=== PATIENT | male | born 1940 | race Caucasian/White ===

== ENCOUNTER 2021-04-13 11:16 | Outpatient (CLI) | payer MEDICARE, OTHER ==
[2021-04-14 01:13] LABS: SARS-CoV-2 PCR by NAA Not Detected (NotDetected)
== END 2021-04-13 11:17 | disposition home or self-care (01) ==
LOC: CSHLAB 11:16
PROVIDERS: ATTEND Internal Medicine Gastroenterology
DX: Z20.822 Contact with and (suspected) exposure to COVID-19 (principal)
CPT/HCPCS: U0003; U0005

== ENCOUNTER 2023-07-22 22:12 | Inpatient (IN) | payer MEDICARE ==
[2023-07-22] MEDS ORDERED: Guaifenesin DM 100-10/5 ML UDCUP PO PRN (23:52)
[2023-07-22] MEDS ORDERED: Ondansetron PF 4 MG/2 ML Vial IVP PRN (23:52)
[2023-07-22] MEDS ORDERED: Acetaminophen 325 MG TAB PO PRN (23:52)
[2023-07-22] MEDS ORDERED: Calcium Carbonate 500 MG ChewTAB PO PRN (23:52)
[2023-07-22] MEDS ORDERED: Senokot S 8.6-50 MG TAB PO PRN (23:52)
[2023-07-23] MEDS ORDERED: cefTRIAXone\\ROCEPHIN 1 GM in Sodium Chloride 0.9% 100 ML IVPB SCH (00:15)
[2023-07-23 00:17] VITALS: BMI 30.2
[2023-07-23] MEDS ORDERED: Lactated Ringer's 1,000 ML IV SCH (01:00)
[2023-07-23] MEDS ORDERED: Lactated Ringer's 250 ML IV SCH (01:00)
[2023-07-23] MEDS ORDERED: Vancomycin 1.5 GRAM/300 ML BAG 1.5 GM in Premix 1 BAG IVPB SCH (01:00)
[2023-07-23] MEDS ORDERED: Amlodipine 5 MG TAB PO SCH (04:15)
[2023-07-23 06:20] LABS: #Monocytes 1.1 10x3/uL (0.0-1.1); #Neutrophils 11.3 10x3/uL (1.5-8.4); %Basophils 0.3 % (0.0-2.0); %Eosinophils 0.1 % (0.0-6.0); %Lymphocytes 5.6 % (18.0-47.0); %Monocytes 8.4 % (0.0-10.0); %Neutrophils 85.1 % (40.0-75.0); Hematocrit 44.5 % (38.8-50.0); Hemoglobin 15.8 g/dL (13.5-17.5); Mean Corpuscular HGB CONC 35.5 g/dL (32.0-36.0); Mean Corpuscular Hemoglobin 34.4 pg (27.0-33.0); Mean Corpuscular Volume 96.9 fl (81.2-95.1); Mean Platelet Volume 9.7 fl (7.4-10.4); Platelet Count 128 10x3/uL (150-450); RBC Distribution Width 13.3 % (11.5-14.5); Red Blood Cell (RBC) Count 4.59 10x6/uL (4.32-5.72); White Blood Cell (WBC) Count 13.3 10x3/uL (3.5-10.5)
[2023-07-23 06:38] LABS: Lactic Acid 2.4 mmol/L (0.5-2.2)
[2023-07-23 06:45] LABS: Anion Gap 19 mmol/L (10-20); BUN (Urea Nitrogen) 17 mg/dL (8.4-25.7); CK (CPK) 235 U/L (30-200); Calc. Creatinine Clearance 68 mL/min (70-130); Calcium 9.2 mg/dL (7.8-10.44); Carbon Dioxide 24 mmol/L (23-31); Chloride 95 mmol/L (98-107); Estimated GFR 66; Glucose 130 mg/dL (83-110); Magnesium 1.2 mg/dL (1.6-2.6); Sodium 134 mmol/L (136-145)
[2023-07-23] MEDS ORDERED: Famotidine 20 MG TAB PO SCH (09:00)
[2023-07-23] MEDS: Vit A,C & E/Lutein/Minerals Tablet PO SCH (09:13)
[2023-07-23] MEDS: Cilostazol 100 MG TAB PO SCH ×2 (09:14→17:45)
[2023-07-23] MEDS: CO Q-10 CAPSULE 50 MG PO SCH (09:14)
[2023-07-23] MEDS: Clopidogrel Bisulfate 75 MG TAB PO SCH (09:14)
[2023-07-23] MEDS: Aspirin Chewable 81 MG TAB PO SCH (09:15)
[2023-07-23] MEDS ORDERED: Magnesium 2 GM/50 ML(in water) 2 GM in Premix 1 BAG IVPB SCH (12:45)
[2023-07-23] MEDS ORDERED: Polyethylene Glycol 3350 17 GM Packet PO PRN (12:58)
[2023-07-23] MEDS: Lactated Ringer's 1,000 ML IV SCH (13:29)
[2023-07-23 16:01] LABS: Lactic Acid 3.4 mmol/L (0.5-2.2)
[2023-07-23] MEDS: cefTRIAXone\\ROCEPHIN 2 GM in Sodium Chloride 0.9% 100 ML IVPB SCH (17:44)
[2023-07-23] MEDS: levETIRAcetam 500 MG TAB PO SCH (17:45)
[2023-07-23 18:55] LABS: Troponin I 0.052 ng/mL (< 0.028)
[2023-07-23] MEDS: Atorvastatin Calcium 40 MG TAB PO SCH (20:49)
[2023-07-23] MEDS ORDERED: levETIRAcetam 500 MG TAB PO SCH (21:00)
[2023-07-24] MEDS: Lactated Ringer's 1,000 ML IV SCH (02:22)
[2023-07-24 04:52] LABS: #Monocytes 1.1 10x3/uL (0.0-1.1); %Basophils 0.3 % (0.0-2.0); %Eosinophils 0.3 % (0.0-6.0); %Lymphocytes 7.8 % (18.0-47.0); %Monocytes 10.6 % (0.0-10.0); %Neutrophils 80.4 % (40.0-75.0); Hematocrit 40.4 % (38.8-50.0); Hemoglobin 14.5 g/dL (13.5-17.5); Mean Corpuscular HGB CONC 35.9 g/dL (32.0-36.0); Mean Corpuscular Hemoglobin 35.1 pg (27.0-33.0); Mean Corpuscular Volume 97.8 fl (81.2-95.1); Mean Platelet Volume 10.4 fl (7.4-10.4); Platelet Count 114 10x3/uL (150-450); RBC Distribution Width 13.4 % (11.5-14.5); Red Blood Cell (RBC) Count 4.13 10x6/uL (4.32-5.72); White Blood Cell (WBC) Count 9.9 10x3/uL (3.5-10.5)
[2023-07-24 05:04] LABS: Anion Gap 16 mmol/L (10-20); BUN (Urea Nitrogen) 23 mg/dL (8.4-25.7); Calc. Creatinine Clearance 67 mL/min (70-130); Calcium 8.9 mg/dL (7.8-10.44); Carbon Dioxide 25 mmol/L (23-31); Chloride 97 mmol/L (98-107); Estimated GFR 64; Glucose 129 mg/dL (83-110); Potassium 3.7 mmol/L (3.5-5.1); Sodium 134 mmol/L (136-145)
[2023-07-24 05:08] LABS: Troponin I 0.043 ng/mL (< 0.028)
[2023-07-24 05:19] LABS: Platelet Adequacy Comment Appears Decreased
[2023-07-24 05:20] LABS: Macrocytosis SLIGHT = 6-15 cells (100X) (0-5/hpf)
[2023-07-24] MEDS: CO Q-10 CAPSULE 50 MG PO SCH (08:56)
[2023-07-24] MEDS: Clopidogrel Bisulfate 75 MG TAB PO SCH (08:56)
[2023-07-24] MEDS: Vit A,C & E/Lutein/Minerals Tablet PO SCH (08:56)
[2023-07-24] MEDS: Aspirin Chewable 81 MG TAB PO SCH (08:56)
[2023-07-24] MEDS: Cilostazol 100 MG TAB PO SCH ×2 (08:56→16:19)
[2023-07-24] MEDS: Polyethylene Glycol 3350 17 GM Packet PO SCH (08:56)
[2023-07-24] MEDS: levETIRAcetam 500 MG TAB PO SCH (16:20)
[2023-07-24] MEDS: cefTRIAXone\\ROCEPHIN 2 GM in Sodium Chloride 0.9% 100 ML IVPB SCH (18:43)
[2023-07-24] MEDS: Atorvastatin Calcium 40 MG TAB PO SCH (22:23)
[2023-07-25 05:07] LABS: #Eosinphils 0.2 10x3/uL (0.0-0.5); #Monocytes 0.9 10x3/uL (0.0-1.1); #Neutrophils 4.6 10x3/uL (1.5-8.4); %Basophils 0.3 % (0.0-2.0); %Eosinophils 2.7 % (0.0-6.0); %Lymphocytes 15.1 % (18.0-47.0); %Monocytes 13.9 % (0.0-10.0); %Neutrophils 67.6 % (40.0-75.0); Hematocrit 36.4 % (38.8-50.0); Hemoglobin 13.6 g/dL (13.5-17.5); Mean Corpuscular HGB CONC 37.4 g/dL (32.0-36.0); Mean Corpuscular Hemoglobin 35.9 pg (27.0-33.0); Mean Platelet Volume 10.4 fl (7.4-10.4); Platelet Count 118 10x3/uL (150-450); RBC Distribution Width 13.2 % (11.5-14.5); Red Blood Cell (RBC) Count 3.79 10x6/uL (4.32-5.72); White Blood Cell (WBC) Count 6.8 10x3/uL (3.5-10.5)
[2023-07-25 05:32] LABS: Anion Gap 14 mmol/L (10-20); BUN (Urea Nitrogen) 21 mg/dL (8.4-25.7); Calc. Creatinine Clearance 76 mL/min (70-130); Calcium 8.7 mg/dL (7.8-10.44); Carbon Dioxide 23 mmol/L (23-31); Chloride 100 mmol/L (98-107); Estimated GFR 75; Glucose 117 mg/dL (83-110); Potassium 2.8 mmol/L (3.5-5.1); Sodium 134 mmol/L (136-145)
[2023-07-25 05:53] LABS: Macrocytosis SLIGHT = 6-15 cells (100X) (0-5/hpf); Platelet Adequacy Comment Appears Decreased
[2023-07-25] MEDS: Cilostazol 100 MG TAB PO SCH ×2 (07:37→17:46)
[2023-07-25] MEDS: Vit A,C & E/Lutein/Minerals Tablet PO SCH (09:24)
[2023-07-25] MEDS: Potassium Chloride 20 MEQ TAB PO SCH ×2 (09:24→11:00)
[2023-07-25] MEDS: CO Q-10 CAPSULE 50 MG PO SCH (09:24)
[2023-07-25] MEDS: Aspirin Chewable 81 MG TAB PO SCH (09:25)
[2023-07-25] MEDS: Polyethylene Glycol 3350 17 GM Packet PO SCH (09:25)
[2023-07-25] MEDS: Clopidogrel Bisulfate 75 MG TAB PO SCH (09:25)
[2023-07-25] MEDS ORDERED: Lorazepam 2 MG/ML VIAL SLOW IVP SCH (12:00)
[2023-07-25] MEDS ORDERED: Potassium Chloride 20 MEQ TAB PO SCH (17:00)
[2023-07-25] MEDS: levETIRAcetam 500 MG TAB PO SCH (17:46)
[2023-07-25] MEDS: cefTRIAXone\\ROCEPHIN 2 GM in Sodium Chloride 0.9% 100 ML IVPB SCH (17:46)
[2023-07-25] MEDS: Atorvastatin Calcium 40 MG TAB PO SCH (20:52)
[2023-07-26 05:36] LABS: #Eosinphils 0.2 10x3/uL (0.0-0.5); #Monocytes 0.6 10x3/uL (0.0-1.1); #Neutrophils 4.8 10x3/uL (1.5-8.4); %Basophils 0.6 % (0.0-2.0); %Eosinophils 3.6 % (0.0-6.0); %Lymphocytes 14.2 % (18.0-47.0); %Monocytes 9.6 % (0.0-10.0); %Neutrophils 71.4 % (40.0-75.0); Hematocrit 39.3 % (38.8-50.0); Hemoglobin 13.8 g/dL (13.5-17.5); Mean Corpuscular HGB CONC 35.1 g/dL (32.0-36.0); Mean Corpuscular Hemoglobin 34.6 pg (27.0-33.0); Mean Corpuscular Volume 98.5 fl (81.2-95.1); Mean Platelet Volume 10.3 fl (7.4-10.4); Platelet Count 137 10x3/uL (150-450); RBC Distribution Width 13.2 % (11.5-14.5); Red Blood Cell (RBC) Count 3.99 10x6/uL (4.32-5.72); White Blood Cell (WBC) Count 6.7 10x3/uL (3.5-10.5)
[2023-07-26 05:51] LABS: Anion Gap 16 mmol/L (10-20); BUN (Urea Nitrogen) 19 mg/dL (8.4-25.7); Calc. Creatinine Clearance 78 mL/min (70-130); Calcium 9.1 mg/dL (7.8-10.44); Carbon Dioxide 22 mmol/L (23-31); Chloride 102 mmol/L (98-107); Estimated GFR 77; Glucose 109 mg/dL (83-110); Potassium 3.5 mmol/L (3.5-5.1); Sodium 136 mmol/L (136-145)
[2023-07-26] MEDS: Aspirin Chewable 81 MG TAB PO SCH (08:37)
[2023-07-26] MEDS: Hydrochlorothiazide 25 MG TAB PO SCH (08:37)
[2023-07-26] MEDS: Cilostazol 100 MG TAB PO SCH ×2 (08:37→16:39)
[2023-07-26] MEDS: Clopidogrel Bisulfate 75 MG TAB PO SCH (08:37)
[2023-07-26] MEDS: CO Q-10 CAPSULE 50 MG PO SCH (08:38)
[2023-07-26] MEDS: Vit A,C & E/Lutein/Minerals Tablet PO SCH (08:38)
[2023-07-26] MEDS: Polyethylene Glycol 3350 17 GM Packet PO SCH (08:38)
[2023-07-26 12:58] LABS: Free T4 (Free Thyroxine) 1.06 ng/dL (0.70-1.48); Thyroid Stimulating Hormone 1.4536 uIU/mL (0.35-4.94)
[2023-07-26] MEDS: Potassium Chloride 20 MEQ TAB PO SCH ×2 (14:41→16:40)
[2023-07-26] MEDS: levETIRAcetam 500 MG TAB PO SCH (16:40)
[2023-07-26] MEDS: cefTRIAXone\\ROCEPHIN 2 GM in Sodium Chloride 0.9% 100 ML IVPB SCH (16:41)
[2023-07-26] MEDS: Atorvastatin Calcium 40 MG TAB PO SCH (21:43)
[2023-07-27 05:21] LABS: #Eosinphils 0.2 10x3/uL (0.0-0.5); #Monocytes 0.7 10x3/uL (0.0-1.1); #Neutrophils 3.7 10x3/uL (1.5-8.4); %Basophils 0.5 % (0.0-2.0); %Eosinophils 3.2 % (0.0-6.0); %Lymphocytes 22.1 % (18.0-47.0); %Monocytes 11.6 % (0.0-10.0); %Neutrophils 61.8 % (40.0-75.0); Hematocrit 39.5 % (38.8-50.0); Hemoglobin 14.1 g/dL (13.5-17.5); Mean Corpuscular HGB CONC 35.7 g/dL (32.0-36.0); Mean Corpuscular Hemoglobin 34.3 pg (27.0-33.0); Mean Corpuscular Volume 96.1 fl (81.2-95.1); Mean Platelet Volume 10.1 fl (7.4-10.4); Platelet Count 160 10x3/uL (150-450); Red Blood Cell (RBC) Count 4.11 10x6/uL (4.32-5.72)
[2023-07-27 05:31] LABS: Anion Gap 16 mmol/L (10-20); BUN (Urea Nitrogen) 15 mg/dL (8.4-25.7); Calc. Creatinine Clearance 92 mL/min (70-130); Calcium 9.3 mg/dL (7.8-10.44); Carbon Dioxide 21 mmol/L (23-31); Chloride 102 mmol/L (98-107); Estimated GFR 88; Glucose 103 mg/dL (83-110); Sodium 136 mmol/L (136-145)
[2023-07-27] MEDS: Cilostazol 100 MG TAB PO SCH ×2 (07:43→15:34)
[2023-07-27] MEDS: Clopidogrel Bisulfate 75 MG TAB PO SCH (09:48)
[2023-07-27] MEDS: Vit A,C & E/Lutein/Minerals Tablet PO SCH (09:48)
[2023-07-27] MEDS: Hydrochlorothiazide 25 MG TAB PO SCH (09:48)
[2023-07-27] MEDS: CO Q-10 CAPSULE 50 MG PO SCH (09:48)
[2023-07-27] MEDS: Aspirin Chewable 81 MG TAB PO SCH (09:49)
[2023-07-27] MEDS: Polyethylene Glycol 3350 17 GM Packet PO SCH (09:49)
[2023-07-27 10:58] LABS: Magnesium 1.4 mg/dL (1.6-2.6)
[2023-07-27] MEDS ORDERED: dilTIAZem 30 MG TAB PO SCH (11:15)
[2023-07-27] MEDS ORDERED: Magnesium Sulfate 4 GM in Sodium Chloride 0.9% 250 ML 250 ML IVPB SCH (11:30)
[2023-07-27] MEDS: Magnesium 2 GM/50 ML(in water) 2 GM in Premix 1 BAG IVPB SCH ×2 (11:32→11:37)
[2023-07-27] MEDS: dilTIAZem 30 MG TAB PO SCH ×2 (15:34→20:28)
[2023-07-27] MEDS: levETIRAcetam 500 MG TAB PO SCH (16:59)
[2023-07-27] MEDS: cefTRIAXone\\ROCEPHIN 2 GM in Sodium Chloride 0.9% 100 ML IVPB SCH (17:01)
[2023-07-27] MEDS ORDERED: Electrolyte Replacement Protocol 1 EACH FS PRN (18:51)
[2023-07-27] MEDS ORDERED: Potassium Chloride 20 MEQ TAB PO SCH (20:00)
[2023-07-27] MEDS: Atorvastatin Calcium 40 MG TAB PO SCH (20:28)
[2023-07-28 03:37] LABS: #Basophils 0.1 10x3/uL (0.0-0.2); #Eosinphils 0.3 10x3/uL (0.0-0.5); #Monocytes 0.7 10x3/uL (0.0-1.1); #Neutrophils 3.9 10x3/uL (1.5-8.4); %Basophils 1.2 % (0.0-2.0); %Eosinophils 3.8 % (0.0-6.0); %Lymphocytes 23.7 % (18.0-47.0); %Monocytes 10.8 % (0.0-10.0); %Neutrophils 59.6 % (40.0-75.0); Hematocrit 41.8 % (38.8-50.0); Hemoglobin 14.9 g/dL (13.5-17.5); Mean Corpuscular HGB CONC 35.6 g/dL (32.0-36.0); Mean Corpuscular Hemoglobin 35.1 pg (27.0-33.0); Mean Corpuscular Volume 98.4 fl (81.2-95.1); Platelet Count 177 10x3/uL (150-450); RBC Distribution Width 13.1 % (11.5-14.5); Red Blood Cell (RBC) Count 4.25 10x6/uL (4.32-5.72); White Blood Cell (WBC) Count 6.6 10x3/uL (3.5-10.5)
[2023-07-28 03:45] LABS: Anion Gap 16 mmol/L (10-20); BUN (Urea Nitrogen) 18 mg/dL (8.4-25.7); Calc. Creatinine Clearance 91 mL/min (70-130); Calcium 9.5 mg/dL (7.8-10.44); Carbon Dioxide 20 mmol/L (23-31); Chloride 104 mmol/L (98-107); Estimated GFR 88; Glucose 105 mg/dL (83-110); Magnesium 1.8 mg/dL (1.6-2.6); Potassium 3.1 mmol/L (3.5-5.1); Sodium 137 mmol/L (136-145)
[2023-07-28] MEDS ORDERED: Magnesium 2 GM/50 ML BAG (IN WATER) ONE (07:46)
[2023-07-28] MEDS ORDERED: Magnesium 2 GM/50 ML(in water) 2 GM in Premix 1 BAG IVPB SCH ×2 (08:00→08:30)
[2023-07-28] MEDS ORDERED: Potassium Chloride 20 MEQ TAB PO SCH ×2 (08:00→17:30)
[2023-07-28] MEDS ORDERED: Potassium Chloride 10 MEQ in Premix 1 BAG IVPB SCH (08:30)
[2023-07-28] MEDS: CO Q-10 CAPSULE 50 MG PO SCH (08:30)
[2023-07-28] MEDS: Aspirin Chewable 81 MG TAB PO SCH (08:31)
[2023-07-28] MEDS: Clopidogrel Bisulfate 75 MG TAB PO SCH (08:31)
[2023-07-28] MEDS: dilTIAZem 30 MG TAB PO SCH (08:31)
[2023-07-28] MEDS: Polyethylene Glycol 3350 17 GM Packet PO SCH (08:32)
[2023-07-28] MEDS: Vit A,C & E/Lutein/Minerals Tablet PO SCH (08:32)
[2023-07-28] MEDS: Cilostazol 100 MG TAB PO SCH ×2 (08:32→15:31)
[2023-07-28] MEDS ORDERED: Amiodarone 200 MG TAB PO SCH (14:30)
[2023-07-28] MEDS: cefTRIAXone\\ROCEPHIN 2 GM in Sodium Chloride 0.9% 100 ML IVPB SCH (18:06)
[2023-07-28] MEDS: levETIRAcetam 500 MG TAB PO SCH (18:07)
[2023-07-28] MEDS: Atorvastatin Calcium 40 MG TAB PO SCH (20:36)
[2023-07-28] MEDS: Amiodarone 200 MG TAB PO SCH (20:36)
[2023-07-28] MEDS: Ketotifen 0.035% Ophth Soln 5 ml Bottle EA EYE SCH (20:37)
[2023-07-29 04:01] LABS: #Basophils 0.1 10x3/uL (0.0-0.2); #Eosinphils 0.2 10x3/uL (0.0-0.5); #Monocytes 0.6 10x3/uL (0.0-1.1); #Neutrophils 4.1 10x3/uL (1.5-8.4); %Eosinophils 3.5 % (0.0-6.0); %Lymphocytes 24.2 % (18.0-47.0); %Monocytes 8.9 % (0.0-10.0); %Neutrophils 61.2 % (40.0-75.0); Hemoglobin 13.9 g/dL (13.5-17.5); Mean Corpuscular HGB CONC 35.6 g/dL (32.0-36.0); Mean Corpuscular Hemoglobin 34.8 pg (27.0-33.0); Mean Corpuscular Volume 97.5 fl (81.2-95.1); Mean Platelet Volume 9.9 fl (7.4-10.4); Platelet Count 224 10x3/uL (150-450); RBC Distribution Width 13.1 % (11.5-14.5); White Blood Cell (WBC) Count 6.8 10x3/uL (3.5-10.5)
[2023-07-29 04:05] LABS: Anion Gap 13 mmol/L (10-20); BUN (Urea Nitrogen) 18 mg/dL (8.4-25.7); Calc. Creatinine Clearance 89 mL/min (70-130); Calcium 8.8 mg/dL (7.8-10.44); Carbon Dioxide 20 mmol/L (23-31); Chloride 106 mmol/L (98-107); Estimated GFR 87; Glucose 103 mg/dL (83-110); Magnesium 1.8 mg/dL (1.6-2.6); Potassium 3.4 mmol/L (3.5-5.1); Sodium 136 mmol/L (136-145)
[2023-07-29] MEDS ORDERED: Magnesium 2 GM/50 ML(in water) 2 GM in Premix 1 BAG IVPB SCH (08:00)
[2023-07-29] MEDS ORDERED: Potassium Chloride 20 MEQ TAB PO SCH (08:00)
[2023-07-29] MEDS ORDERED: Magnesium Oxide 400 MG TAB PO SCH (09:00)
[2023-07-29] MEDS ORDERED: dilTIAZem CD 120 MG CAP PO SCH (09:00)
[2023-07-29] MEDS: Aspirin Chewable 81 MG TAB PO SCH (10:03)
[2023-07-29] MEDS: CO Q-10 CAPSULE 50 MG PO SCH (10:04)
[2023-07-29] MEDS: Clopidogrel Bisulfate 75 MG TAB PO SCH (10:05)
[2023-07-29] MEDS: Amiodarone 200 MG TAB PO SCH (10:05)
[2023-07-29] MEDS: Cilostazol 100 MG TAB PO SCH ×2 (10:05→17:21)
[2023-07-29] MEDS: Vit A,C & E/Lutein/Minerals Tablet PO SCH (10:06)
[2023-07-29] MEDS: Polyethylene Glycol 3350 17 GM Packet PO SCH (10:06)
[2023-07-29] MEDS: Ketotifen 0.035% Ophth Soln 5 ml Bottle EA EYE SCH (10:31)
[2023-07-29 13:03] LABS: Potassium 3.9 mmol/L (3.5-5.1)
[2023-07-29] MEDS ORDERED: Sulfameth/Trimethoprim DS 800-160mg TAB PO SCH ×2 (16:00→23:00)
[2023-07-29] MEDS: levETIRAcetam 500 MG TAB PO SCH (17:21)
[2023-07-29 17:23] VITALS: BP 133/77; TEMP 97.6
[2023-07-29] MEDS ORDERED: OLOPATADINE HCL EYE EA EYE SCH (21:00)
== END 2023-07-29 19:05 | DRG 871 ==
LOC: CSHTELE 23:08 → OBSVTOIN 23:52
PROVIDERS: ADMIT Student in an Organized Health Care Education/Training Program; ATTEND Internal Medicine
DX: A41.51 Sepsis due to Escherichia coli [E. coli] (principal); I21.A1 Myocardial infarction type 2; E87.20 Acidosis, unspecified; N39.0 Urinary tract infection, site not specified; E87.1 Hypo-osmolality and hyponatremia; N17.9 Acute kidney failure, unspecified; I48.19 Other persistent atrial fibrillation; F10.239 Alcohol dependence with withdrawal, unspecified; I10 Essential (primary) hypertension; R65.20 Severe sepsis without septic shock; E78.5 Hyperlipidemia, unspecified; I73.9 Peripheral vascular disease, unspecified; K21.9 Gastro-esophageal reflux disease without esophagitis; E86.0 Dehydration; E87.6 Hypokalemia; G40.909 Epilepsy, unspecified, not intractable, without status epilepticus; Z98.890 Other specified postprocedural states; Z88.8 Allergy status to other drugs, medicaments and biological substances; Z91.018 Allergy to other foods; Z79.899 Other long term (current) drug therapy; Z79.82 Long term (current) use of aspirin; Z87.891 Personal history of nicotine dependence
CPT/HCPCS: 36415; 71045; 71275; 76770; 80048; 82550; 83605; 83735; 83880; 84145; 84439; 84443; 84484; 85025; 87040; 87077; 87086; 87186; 93005; 93010; 93306; 94667; 94760; 94762; J0696; J1650; J2060; J3370; J3475; J3480; J3490; J7120